=== PATIENT | female | born 1985 ===

== ENCOUNTER 2024-07-13 05:46 | Emergency (ER) | payer MEDICAID, SELFPAY ==
[2024-07-13] VITALS (13 sets, daily range): BP systolic 85–89; BP diastolic 48–59; PULSE 78–84; RESP 13–20; TEMP 36.6; O2SAT 98–100
--- NOTE | 2024-07-13 05:52 | W.ED.GENAD ---
Discharge Plan Discharge Details Chief Complaint: Nausea/Vomit/Diar Clinical Impression: Overdose Primary Care Provider: Sandra Shepherd ED Provider: Dona Hernandez Home Meds and New Rx's Prescriptions: No Action No Known Home Meds Discharge Instructions Instructions: Opioid Overdose ED Referrals: Sandra Shepherd [Primary Care Provider] - [facility] General Mode of arrival: ambulatory. Date/Time Provider Initiated Documentation: 07/13/24 05:52. Limitations to Documentation: no limitations. Information obtained by: patient. HPI Narrative: 39yo female presenting after unresponsive episode in ED waiting area bathroom. Pt had ambulated into waiting room and then went to bathroom, did not check in at desk. Staff noted that she had not come out; attempted to get her to answer and she did not; door forced open and patient found on the bathroom floor not responding to voice with some vomit present on her clothes. Was able to be roused; registered and taken into the main ED. Denies complaints currently; no headache, nausea, vomiting, abdominal pain, recent injury, or other concerns. Declines lab work or other testing, states she just wants to 'sleep it off'. Denies recreational substance use. Related Data Home Medications ?Medication ?Instructions ?Recorded ?Confirmed Unknown [No Known Home Meds] 07/13/24 07/13/24 Allergies Allergy/AdvReac Type Severity Reaction Status Date / Time No Known Allergies Allergy Verified 07/13/24 06:07 Review of Systems Narrative: see HPI Exam Narrative Exam Narrative: General: Somnolent but arousable. Head: Normocephalic, atraumatic Neck: Trachea midline, ?Neck supple. Torticollis (pt states chronic) ENT: ?MMM.? No hemotypanum. Cardiac: ?RRR, no murmurs appreciated Resp: No respiratory distress. CTAB. Abd: ?Soft, non-distended, nontender : ?No suprapubic tenderness. . Extremities: ?No deformities.? No peripheral edema. Neuro: ? GCS 14 (E3 V5 M6).? PERRL.? EOMI.? Fluent speech, no dysarthria. Motor- 5/5 strength symmetric bilateral upper and lower extremities Sensation- ?Intact to light touch and symmetric multiple dermatomes including upper and lower extremities CRANIAL NERVES: II: Pupils pinpoint, equal, and reactive, III, IV, : EOM intact, no gaze preference or deviation, no nystagmus. V: normal sensation in V1, V2, and V3 segments bilaterally VII: no asymmetry, no nasolabial fold flattening VIII: normal hearing to speech IX, X: normal palatal elevation, no uvular deviation X: Not tested XII: midline tongue protrusion Medical Decision Making 39yo female presenting after unresponsive episode in ED waiting area bathroom; per staff pt had ambulated into waiting room and then went to bathroom, did not check in at desk. Staff noted that she had not come out; attempted to get her to answer and she did not; door forced open and patient found on the bathroom floor not responding to voice with some vomit present on her clothes. Taken to room in the ED. Vital signs reassuring. Eyes closed but arousable on my exam, no focal neurologic deficits. Does nod off during conversation requiring frequent arousing. Staff familiar with patient from OSH report history of frequent similar presentations after IVDU. Ms. Velasco denies any illicit substance use to me, though she requests to 'sleep it off'. Also denies any physical complaints. Denies SI/HI/AH/VH. Declines labs or further assessment. No indication of head trauma on exam. Fingerstick blood glucose in 90's. Has capacity; no indication to treat her against her will. On reassessment pt does subsequently state she used IV drugs this morning. Declines referrals for rehab/MAT/etc. Will continue to observe on continuous pulse oximtery, discharge when more alert. Will be signed out to oncoming physician. Contingent discharge instructions written. Quality:[facility] Health Related Social Needs: No Data to Display [facility], LAT[facility] All Active Problems (Updated 07/13/24 @ 06:27 by Dona Hernandez MD) Overdose (Acute) Social History Smoking risk assessment performed?: No
[2024-07-13] MEDS: Ondansetron O.D.T. 4 MG TABEF PO (07:12)
--- NOTE | 2024-07-13 07:23 | W.EDPROG ---
Date of service: 07/13/24 Time of Service: 07:23 Medical Decision Making Care assumed from outgoing provider. Patient is a 39-year-old female with history of polysubstance abuse. Plan for monitoring, return to baseline and discharge. patient awake and ambulated independently to bathroom. tolerating PO. at this time, stable for DC. patient has no complaints other than not having transportation. she was provided narcan to leave with. Recommended refrain from drug use. Quality:[facility] Health Related Social Needs: Health related social needs risk of homeless, food insecurity, material hardship, personal safety Sign Out Sign Out Data: Sign Out Comment: 39yo F, IVDU, OD. Discharge when more awake. Last updated by Dona Hernandez MD at 07/13/24 07:12 Discharge Plan Disposition Patient Disposition: Home Condition: Stable Discharge Details Clinical Impression: Overdose Primary Care Provider: Sandra Shepherd ED Provider: Reid Denson Home Meds and New Rx's Prescriptions: No Action No Known Home Meds Discharge Instructions Instructions: Opioid Overdose ED Referrals: Sandra Shepherd [Primary Care Provider] -
== END 2024-07-13 08:20 | disposition home or self-care (01) ==
PROVIDERS: Emergency Provider Emergency Medicine; PCP Internal Medicine
DX: T50.901A Poisoning by unspecified drugs, medicaments and biological substances, accidental (unintentional), initial encounter (principal); R11.2 Nausea with vomiting, unspecified; R10.32 Left lower quadrant pain; R55 Syncope and collapse
CPT/HCPCS: 00123; 99283